=== PATIENT | male | born 1975 | race Caucasian/White ===

== ENCOUNTER 2016-06-16 13:20 | Emergency (ER) | payer OTHER ==
[2016-06-16] MEDS ORDERED: Ketorolac 30 MG/ML SDV IVPUSH ONE (14:35)
[2016-06-16] MEDS ORDERED: Sodium Chloride 0.9% 10 ML Syringe FLUSH PRN (14:35)
[2016-06-16] MEDS ORDERED: Sodium Chloride 0.9% 2.5 ML Syringe FLUSH PRN (14:35)
--- NOTE | 2016-06-16 14:46 | EDM.PDOC ---
ED HPI RENAL/ - General Chief Complaint: Flank Pain Stated Complaint: POSSIBLE KIDNEY STONE Time Seen by Provider: 06/16/16 14:03 Source of Information: Reports: Patient History Limitations: Reports: No limitations - History of Present Illness INITIAL COMMENTS - FREE TEXT/NARRATIVE: xHISTORY AND PHYSICAL: History of present illness: HISTORY AND PHYSICAL: History of present illness: [40-year-old male has a history of kidney stones now complaining of left flank pain. Patient previously had a large kidney stone the left that required lithotripsy. This morning he has sudden onset left flank pain typical for his renal colic. Denies dysuria prodrome. He said normal bowel and bladder habits recently. Pain is not worse with movement. He has no fevers chills sweats or shaking chills. Pain waxes and wanes and is not positional.] Review of systems: As per history of present illness and below otherwise all systems reviewed and negative. Past medical history: As per history of present illness and as reviewed below otherwise noncontributory. Surgical history: As per history of present illness and as reviewed below otherwise noncontributory. Social history: No reported history of drug or alcohol abuse. Family history: As per history of present illness and as reviewed below otherwise noncontributory. Physical exam: HEENT: Atraumatic, normocephalic, pupils reactive, negative for conjunctival pallor or scleral icterus, mucous membranes moist, throat clear, neck supple, nontender, trachea midline. Lungs: Clear to auscultation, breath sounds equal bilaterally, chest nontender. Heart: S1S2, regular, negative for clicks, rubs, or JVD. Abdomen: Soft, nondistended, nontender. Negative for masses or hepatosplenomegaly. Positive costovertebral tenderness left side. No CVAT on the right Pelvis: Stable nontender. Genitourinary: Deferred. Rectal: Deferred. Extremities: Atraumatic, negative for cords or calf pain. Neurovascular unremarkable. Neuro: Awake, alert, oriented. Cranial nerves II through XII unremarkable. Cerebellum unremarkable. Motor and sensory unremarkable throughout. Exam nonfocal. Diagnostics: [Noncontrast CT of urinary tract pending] Therapeutics: [] Impression: [Left flank pain,renal colic] Plan: [Signs and symptoms consistent with renal colic in a patient with a history of the same. He is well-appearing afebrile unremarkable vital signs. Abdomen and pelvis are benign. Pain is easily reproduced in the left costovertebral angle. No infectious prodrome or clinical presentation. Patient metabolic panel pending as well as UA to rule out less likely possibility of infection. Portal given IV with improvement of symptoms. Urinalysis with microscopic hematuria and no evidence of infection. Renal function normal. Glucose mildly elevated at 145. CT of the abdomen and pelvis with no kidney or ureteral stones visible. Microscopic hematuria patient's clinical history consistent with colic suspect passage the bladder small stone. Patient stable and afebrile. No further workup or treatment indicated. Patient aware to use ibuprofen and follow up with PCP for reevaluation of urinalysis to rule out persistent hematuria and indication for further workup as needed. He agrees with outpatient followup strict return precautions given. Definitive disposition and diagnosis as appropriate pending reevaluation and review of above. - Related Data Allergies/ADRs: Allergies Allergy/AdvReac Type Severity Reaction Status Date / Time No Known Allergies Allergy Verified 06/16/16 14:14 Home Meds: Home Meds Acetaminophen/Diphenhydramine [Tylenol Pm Ex-Strength Caplet] 1 tab PO QPM 06/16 [History] Past Medical History - Past Health History Medical/Surgical History: Denies Medical/Surgical History Genitourinary History: Reports: Renal calculus Social & Family History - Family History Family Medical History: Noncontributory - Tobacco Use Smoking Status *Q: Never Smoker Second Hand Smoke Exposure: No - Caffeine Use Caffeine Use: Reports: Soda Caffeine Use Comment: occationally - Recreational Drug Use Recreational Drug Use: No ED ROS GENERAL - Review of Systems Review Of Systems: See Below (See history of present illness) ED EXAM, RENAL/ - Physical Exam Exam: See Below (See history of present illness) Course - Vital Signs Last Recorded V/S: Last Vital Signs Temp 37.3 C 06/16/16 15:23 Pulse 94 06/16/16 15:23 Resp 18 06/16/16 15:23 BP 134/78 06/16/16 15:23 Pulse Ox 95 06/16/16 15:23 - Orders/Labs/Meds Orders: Active Orders 24 hr Category Date Time Status Sodium Chloride 0.9% [Saline Flush] Med 06/16/16 14:35 Active 10 ml FLUSH ASDIRECTED PRN Sodium Chloride 0.9% [Saline Flush] Med 06/16/16 14:35 Active 2.5 ml FLUSH ASDIRECTED PRN Saline Lock Insert [OM.PC] Stat Oth 06/16/16 14:35 Ordered Medication Orders Sodium Chloride (Saline Flush) 10 ml FLUSH ASDIRECTED PRN PRN Reason: Keep Vein Open Sodium Chloride (Saline Flush) 2.5 ml FLUSH ASDIRECTED PRN PRN Reason: Keep Vein Open Labs: Laboratory Tests 06/16/16 06/16/16 Range/Units 13:59 14:52 Sodium 141 (136-146) mmol/L Potassium 4.0 (3.5-5.1) mmol/L Chloride 106 (98-110) mmol/L Carbon Dioxide 25 (21-31) mmol/L BUN 20 (6.0-23.0) mg/dL Creatinine 1.0 (0.6-1.5) mg/dL Est Cr Clr Drug Dosing 111.88 mL/min Estimated GFR (MDRD) > 60.0 ml/min Glucose 145 H (60-110) mg/dL Calcium 9.2 (8.8-10.8) mg/dL Urine Color YELLOW Urine Appearance HAZY Urine pH 8.0 (5.0-8.0) Ur Specific [place] 1.015 (1.001-1.035) Urine Protein NEGATIVE (NEGATIVE) mg/dL Urine Glucose (UA) NEGATIVE (NEGATIVE) mg/dL Urine Ketones NEGATIVE (NEGATIVE) mg/dL Urine Occult Blood LARGE H (NEGATIVE) Urine Nitrite NEGATIVE (NEGATIVE) Urine Bilirubin NEGATIVE (NEGATIVE) Urine Urobilinogen 0.2 (<2.0) EU/dL Ur Leukocyte Esterase NEGATIVE (NEGATIVE) Urine RBC 18-20 (0-2/HPF) Urine WBC 1-2 (0-5/HPF) Ur Epithelial Cells RARE (NONE-FEW) Amorphous Sediment MODERATE (NEGATIVE) Urine Bacteria FEW (NEGATIVE) Meds: Medications Generic Name Dose Route Start Last Admin Trade Name Freq PRN Reason Stop Dose Admin Sodium Chloride 10 ml 06/16/16 14:35 Saline Flush FLUSH ASDIRECTED PRN Keep Vein Open Sodium Chloride 2.5 ml 06/16/16 14:35 Saline Flush FLUSH ASDIRECTED PRN Keep Vein Open Discontinued Medications Generic Name Dose Route Start Last Admin Trade Name Freq PRN Reason Stop Dose Admin Ketorolac Tromethamine 30 mg 06/16/16 14:35 06/16/16 15:19 Toradol IVPUSH 06/16/16 14:36 30 mg ONETIME ONE Administration Departure - Departure Time of Disposition: 15:42 Disposition: Home, Self-Care 01 Condition: good Clinical Impression: Flank pain, Microscopic hematuria, Renal colic on left side Instructions: Kidney Stones, [id number], Flank Pain, [id number] Referrals: PCP,None [Primary Care Provider] - Forms: ED Department Discharge Additional Instructions: Your symptoms today were suggestive of passage of a kidney stone.. Urinalysis does not show any signs of infection but did have some microscopic hematuria which often goes along with passing a stone your kidney function is normal your glucose was mildly elevated at 145. CAT scan did not show any stones in the kidneys or ureters however it is possible he may have passed a small stone in your bladder. Ibuprofen as needed for pain and follow up with your Dr. for reevaluation of your glucose to rule out evolving type 2 diabetes in for recheck of your microscopic hematuria to rule out the indication for further workup. Return immediately for new severe or worsening symptoms - My Orders Last 24 Hours: My Active Orders 06/16/16 14:35 Sodium Chloride 0.9% [Saline Flush] 10 ml FLUSH ASDIRECTED PRN Sodium Chloride 0.9% [Saline Flush] 2.5 ml FLUSH ASDIRECTED PRN Saline Lock Insert [OM.PC] Stat - Assessment/Plan Last 24 Hours: My Active Orders 06/16/16 14:35 Sodium Chloride 0.9% [Saline Flush] 10 ml FLUSH ASDIRECTED PRN Sodium Chloride 0.9% [Saline Flush] 2.5 ml FLUSH ASDIRECTED PRN Saline Lock Insert [OM.PC] Stat
[2016-06-16 15:29] LABS: CHLORIDE,CL 106 mmol/L (98-110); SODIUM,NA 141 mmol/L (136-146)
--- NOTE | 2016-06-16 15:35 | CT ---
CT of the abdomen and pelvis without contrast. HISTORY: Pain TECHNIQUE: Axial CT images were obtained of the abdomen and pelvis without contrast. Coronal and sag ittal reconstructions obtained. FINDINGS: The lung bases are clear, no pleural effusion. The liver, spleen, adrenal glands, and pancreas appear unremarkable for noncontrast examination. The gallbladder appears normal. There is no bulky retroperitoneal lymphadenopathy. No abdominal ascite s. There are no calcifications noted within the kidneys or along the courses of the ureters bilaterally . The large and small bowel are normal in caliber without evidence of obstruction. The appendix appear s normal. There is no bulky pelvic lymphadenopathy. No free fluid. No free air. The urinary bladder appears normal. There is hemisacralization of the left at L5. IMPRESSION: No acute findings within the abdomen or pelvis.
[2016-06-16] MEDS ORDERED: Acetaminophen/HYDROcodone 325-10 MG Tab PO ONE (16:17)
[2016-06-16 16:35] VITALS: BP 142/84
== END 2016-06-16 17:01 | disposition home or self-care (01) ==
LOC: MW.ED 13:20
DX: R10.9 Unspecified abdominal pain (principal); R31.29 Other microscopic hematuria; N23 Unspecified renal colic; Z87.442 Personal history of urinary calculi
CPT/HCPCS: 36415; 74176; 80048; 81001; 96374; 96375; 99284; A9270; J1885; J2360

== ENCOUNTER 2016-07-17 16:33 | Emergency (ER) | payer OTHER ==
--- NOTE | 2016-07-17 16:59 | EDM.PDOC ---
ED HPI GI/ABDOMINAL - General Chief Complaint: Gastrointestinal Problem Stated Complaint: RECTAL BLEEDING Time Seen by Provider: 07/17/16 16:34 Source of Information: Reports: Patient History Limitations: Reports: No limitations - History of Present Illness INITIAL COMMENTS - FREE TEXT/NARRATIVE: History of present illness: [] Patient had a few days of rectal pain with increased bleeding today. He's had to change his pants several times today due to blood dripping down. Patient has rectal pain. Patient states that he felt a little dizzy on the drive to work today but currently feels fine and the bleeding has slowed down Review of systems: As per history of present illness and below otherwise all systems reviewed and negative. Past medical history: As per history of present illness and as reviewed below otherwise noncontributory. Surgical history: As per history of present illness and as reviewed below otherwise noncontributory. Social history: No reported history of drug or alcohol abuse. Family history: As per history of present illness and as reviewed below otherwise noncontributory. Physical exam: General: Well developed, well nourished in NAD HEENT: Atraumatic, normocephalic, pupils reactive, negative for conjunctival pallor or scleral icterus, mucous membranes moist, throat clear, neck supple, nontender, trachea midline. Lungs: Clear to auscultation, breath sounds equal bilaterally, chest nontender. Heart: S1S2, regular, negative for clicks, rubs, or JVD. Abdomen: Soft, nondistended, nontender. Negative for masses or hepatosplenomegaly. Negative for costovertebral tenderness. Pelvis: Stable nontender. Genitourinary: Deferred. Rectal: No external sign of hemorrhoid no active bleeding per rectum on rectal exam do not appreciate a thrombosed hemorrhoid on palpation and there is no gross blood present Extremities: Atraumatic, negative for cords or calf pain. Neurovascular unremarkable. Neuro: Awake, alert, oriented. Cranial nerves II through XII unremarkable. Cerebellum unremarkable. Motor and sensory unremarkable throughout. Exam nonfocal. Diagnostics: [] CBC normal Therapeutics: [] Impression: [] To bleeding likely secondary to hemorrhoid Plan: [] Anusol as needed for pain, sitz baths, stool softeners followup with PMD Definitive disposition and diagnosis as appropriate pending reevaluation and review of above. - Related Data Allergies/ADRs: Allergies Allergy/AdvReac Type Severity Reaction Status Date / Time No Known Allergies Allergy Verified 07/17/16 17:08 Home Meds: Home Meds Hydrocortisone [Anusol-Hc] 30 gm TP TID PRN #30 cream..g. 07/17/16 [Rx] Past Medical History - Past Health History Medical/Surgical History: Denies Medical/Surgical History Genitourinary History: Reports: Renal calculus Social & Family History - Family History Family Medical History: Noncontributory - Tobacco Use Smoking Status *Q: Never Smoker Second Hand Smoke Exposure: No - Caffeine Use Caffeine Use: Reports: Soda Caffeine Use Comment: occationally - Recreational Drug Use Recreational Drug Use: No ED ROS GENERAL - Review of Systems Review Of Systems: See Below (See history of present illness) ED EXAM, GI/ABD - Physical Exam Exam: See Below (See history of present illness) Course - Vital Signs Last Recorded V/S: Last Vital Signs Temp 36.2 C 07/17/16 17:08 Pulse 94 07/17/16 17:08 Resp 18 07/17/16 17:08 BP 111/76 07/17/16 17:08 Pulse Ox 96 07/17/16 17:08 - Orders/Labs/Meds Labs: Laboratory Tests 07/17/16 Range/Units 17:45 WBC 7.16 (4.0-11.0) K/uL RBC 4.51 (4.50-5.90) M/uL Hgb 14.7 (13.0-17.0) g/dL Hct 42.0 (38.0-50.0) % MCV 93.1 (80.0-98.0) fL MCH 32.6 H (27.0-32.0) pg MCHC 35.0 (31.0-37.0) g/dL RDW Std Deviation 42.1 (28.0-62.0) fl RDW Coeff of Sandrita 12 (11.0-15.0) % Plt Count 234 (150-400) K/uL MPV 10.10 (7.40-12.00) fL Neut % (Auto) 53.8 (48.0-80.0) % Lymph % (Auto) 35.5 (16.0-40.0) % [place] % (Auto) 6.7 (0.0-15.0) % Eos % (Auto) 3.4 (0.0-7.0) % Baso % (Auto) 0.6 (0.0-1.5) % Neut # (Auto) 3.9 (1.4-5.7) K/uL Lymph # (Auto) 2.5 H (0.6-2.4) K/uL [place] # (Auto) 0.5 (0.0-0.8) K/uL Eos # (Auto) 0.2 (0.0-0.7) K/uL Baso # (Auto) 0.0 (0.0-0.1) K/uL Nucleated RBC % 0.0 /100WBC Nucleated RBCs # 0 K/uL Departure - Departure Time of Disposition: 18:10 Disposition: Home, Self-Care 01 Condition: good Clinical Impression: Hemorrhoids Qualifiers: Hemorrhoid type: unspecified Qualified Code(s): K64.9 - Unspecified hemorrhoids Prescriptions: Hydrocortisone [Anusol-Hc] 30 gm TP TID PRN #30 cream..g. PRN Reason: Pain Forms: ED Department Discharge Additional Instructions: The following information is given to patients seen in the emergency department who are being discharged to home. This information is to outline your options for follow-up care. We provide all patients seen in our emergency department with a follow-up referral. The need for follow-up, as well as the timing and circumstances, are variable depending upon the specifics of your emergency department visit. If you don't have a primary care physician on staff, we will provide you with a referral. We always advise you to contact your personal physician following an emergency department visit to inform them of the circumstance of the visit and for follow-up with them and/or the need for any referrals to a consulting specialist. The emergency department will also refer you to a specialist when appropriate. This referral assures that you have the opportunity for follow-up care with a specialist. All of these measure are taken in an effort to provide you with optimal care, which includes your follow-up. Under all circumstances we always encourage you to contact your private physician who remains a resource for coordinating your care. When calling for follow-up care, please make the office aware that this follow-up is from your recent emergency room visit. If for any reason you are refused follow-up, please contact the [facility] at and asked to speak to the emergency department charge nurse. Anusol as needed for pain, stool softeners, sitz baths and followup with your PMD [facility] [address] [place] [id number]
[2016-07-17 18:37] VITALS: BP 115/72
== END 2016-07-17 18:37 | disposition home or self-care (01) ==
LOC: MW.ED 16:33
DX: K64.9 Unspecified hemorrhoids (principal)
CPT/HCPCS: 36415; 85025; 99283

== ENCOUNTER → 2016-08-09 | Outpatient (CLI) | payer OTHER | END | disposition home or self-care (01) | LOC: MW.CHUR 11:40 | PROVIDERS: ATTEND Urology | DX: R31.29 Other microscopic hematuria (principal); R10.9 Unspecified abdominal pain | CPT/HCPCS: 81001 ==

== ENCOUNTER 2019-06-17 09:17 | Emergency (ER) | payer BC, OTHER ==
[2019-06-17] MEDS ORDERED: HYDROmorphone 2 MG/ML Syringe IVPUSH ONE ×2 (09:52→11:00)
[2019-06-17] MEDS ORDERED: Ketorolac 30 MG/ML SDV IVPUSH ONE (09:52)
[2019-06-17] MEDS ORDERED: Ondansetron 4 MG/2 ML SDV IVPUSH ONE (09:52)
[2019-06-17] MEDS ORDERED: Sodium Chloride 0.9% 1,000 ML IV ONE (09:57)
--- NOTE | 2019-06-17 09:57 | EDM.PDOC ---
ED HPI GENERAL MEDICAL PROBLEM - General Chief Complaint: Flank Pain Stated Complaint: POSSIBLE KIDNEY STONE Time Seen by Provider: 06/17/19 09:49 Source of Information: Reports: Patient History Limitations: Reports: No Limitations - History of Present Illness INITIAL COMMENTS - FREE TEXT/NARRATIVE: HISTORY OF PRESENT ILLNESS: Patient is a 43-year-old male with history of kidney stones who presents with pain since 7 AM this morning to his left CVA and flank region which he rates as 9 out of 10 in severity. States he feels as though he cannot get comfortable. States pain feels similar to prior kidney stones. Denies any fevers or chills. Reports nausea but denies any emesis. No other abdominal pain. No diarrhea or constipation. Has not tried to urinate yet but denies any prior dysuria. No rash. No chest pain or dyspnea. REVIEW OF SYSTEMS: Other than the symptoms associated with the present events, the following is reported with regard to recent health: General: (-) fever. HENT: (-) congestion. Respiratory: (-) cough. Cardiovascular: (-) chest pain. GI: left flank pain : (-) dysuria Musculoskeletal: (-) other aches or pains. Endocrine: (-) generalized weakness. Neurological: (-) localized weakness. Skin: (-) rash PAST MEDICAL HISTORY: reviewed as per nursing notes SOCIAL HISTORY: reviewed as per nursing notes, MEDICATIONS: Per nurse's note ALLERGIES: Per nurse's note, reviewed by me PHYSICAL EXAMINATION: GENERALIZED APPEARANCE: well developed, well nourished in moderate distress VITAL SIGNS: Per nurse's note, reviewed by me SKIN: Warm, dry; (-) cyanosis; (-) rash. HEAD: (-) scalp swelling, (-) tenderness. EYES: (-) conjunctival pallor, (-) scleral icterus. ENMT: (-) stridor; mucous membranes moist. NECK: (-) tenderness, (-) stiffness, CHEST AND RESPIRATORY: (-) rales, (-) rhonchi, (-) wheezes; breath sounds equal bilaterally. HEART AND CARDIOVASCULAR: (-) irregularity; (-) murmur, (-) gallop. ABDOMEN AND GI: Soft; (-) tenderness, (-) guarding, (-) rebound, (-) palpable masses, left CVAT, left flank tenderness. EXTREMITIES: (-) deformity, (-) edema. NEURO AND PSYCH: Alert. Cranial nerves grossly intact; strength symmetric. gait steady DIAGNOSTICS: CT abd/pelvis: as per radiologist report, reviewed by myself Labs ordered and reviewed EMERGENCY DEPARTMENT COURSE AND TREATMENT: Patient's condition remained stable during Emergency Department evaluation. Given IVF, Toradol, Dilaudid, Zofran. Significant hematuria noted. No stone seen on CT. Patient is able to urinate here. He does have CVA tenderness. I cannot entirely exclude UTI/early pyelonephritis and therefore will start on antibiotics as below. Must follow- up with urologist in 1 to 2 days. Return immediately with any new or worsening symptoms. No fever emesis or peritoneal signs on examination. Patient is clinically well-appearing nontoxic and pain well controlled after medication. PLAN AND FOLLOW-UP: Patient received written and verbal instructions regarding this condition. Return to ED immediately with any new or worsening symptoms. Follow up to be arranged by patient with pcp and urologist in 1-2 days for further evaluation. Given discharge precautions. Patient expressed verbal understanding. Left Flank Pain Score (Numeric/FACES): 9 - Related Data Allergies Allergy/AdvReac Type Severity Reaction Status Date / Time No Known Allergies Allergy Verified 06/17/19 09:37 Home Meds: Home Meds Sulindac 150 mg PO BID #20 tablet 03/02/19 [Rx] Acetaminophen/oxyCODONE [Percocet 325-5 MG] 1 each PO Q6HR #10 tab 06/17/19 [Rx] Ciprofloxacin HCl [Cipro] 500 mg PO BID 7 Days #14 tablet 06/17/19 [Rx] Past Medical History - Past Health History Medical/Surgical History: Denies Medical/Surgical History HEENT History: Reports: Hard of Hearing Genitourinary History: Reports: Renal Calculus Musculoskeletal History: Reports: Fracture Neurological History: Reports: Other (See Below) Other Neuro History: childhood menengitis Endocrine/Metabolic History: Reports: Obesity/BMI 30+ - Infectious Disease History Infectious Disease History: Reports: Chicken Pox, Measles, Mumps - Past Surgical History HEENT Surgical History: Reports: Tonsillectomy, Other (See Below) Other HEENT Surgeries/Procedures: mastoid removal GI Surgical History: Reports: ERCP Musculoskeletal Surgical History: Reports: Other (See Below) Other Musculoskeletal Surgeries/Procedures:: knee surgery Social & Family History - Family History Family Medical History: Noncontributory - Tobacco Use Smoking Status *Q: Never Smoker Second Hand Smoke Exposure: No - Caffeine Use Caffeine Use: Reports: Coffee, Energy Drinks, Soda Caffeine Use Comment: occationally - Recreational Drug Use Recreational Drug Use: No - Living Situation & Occupation Living situation: Reports: , with Spouse, with Family (2 kids) Occupation: Employed ([employer] ED ROS GENERAL - Review of Systems Review Of Systems: See Below (see dictation) ED EXAM, GENERAL - Physical Exam Exam: See Below (see dictation) Course - Vital Signs Last Recorded V/S: Last Vital Signs Temp 97.9 F 06/17/19 09:34 Pulse 78 06/17/19 11:47 Resp 16 06/17/19 11:47 BP 144/84 H 06/17/19 11:47 Pulse Ox 97 06/17/19 11:47 - Orders/Labs/Meds Labs: Laboratory Tests 06/17/19 06/17/19 06/17/19 Range/Units 09:50 09:50 10:35 WBC 6.78 (4.0-11.0) K/uL RBC 4.51 (4.50-5.90) M/uL Hgb 14.1 (13.0-17.0) g/dL Hct 41.4 (38.0-50.0) % MCV 91.8 (80.0-98.0) fL MCH 31.3 (27.0-32.0) pg MCHC 34.1 (31.0-37.0) g/dL RDW Std Deviation 41.4 (28.0-62.0) fl RDW Coeff of Sandrita 12 (11.0-15.0) % Plt Count 286 (150-400) K/uL MPV 10.10 (7.40-12.00) fL Neut % (Auto) 56.5 (48.0-80.0) % Lymph % (Auto) 31.4 (16.0-40.0) % [place] % (Auto) 8.1 (0.0-15.0) % Eos % (Auto) 3.4 (0.0-7.0) % Baso % (Auto) 0.6 (0.0-1.5) % Neut # (Auto) 3.8 (1.4-5.7) K/uL Lymph # (Auto) 2.1 (0.6-2.4) K/uL [place] # (Auto) 0.6 (0.0-0.8) K/uL Eos # (Auto) 0.2 (0.0-0.7) K/uL Baso # (Auto) 0.0 (0.0-0.1) K/uL Nucleated RBC % 0.0 /100WBC Nucleated RBCs # 0 K/uL Sodium 143 (136-148) mmol/L Potassium 3.4 L (3.5-5.1) mmol/L Chloride 105 (98-107) mmol/L Carbon Dioxide 26.8 (21.0-32.0) mmol/L BUN 11 (7.0-18.0) mg/dL Creatinine 0.8 (0.8-1.3) mg/dL Est Cr Clr Drug Dosing 135.57 mL/min Estimated GFR (MDRD) > 60.0 ml/min Glucose 95 (74-106) mg/dL Calcium 8.5 (8.5-10.1) mg/dL Urine Color RED Urine Appearance CLOUDY Urine pH 6.5 (5.0-8.0) Ur Specific [place] 1.010 (1.001-1.035) Urine Protein NEGATIVE (NEGATIVE) mg/dL Urine Glucose (UA) NEGATIVE (NEGATIVE) mg/dL Urine Ketones NEGATIVE (NEGATIVE) mg/dL Urine Occult Blood LARGE H (NEGATIVE) Urine Nitrite NEGATIVE (NEGATIVE) Urine Bilirubin NEGATIVE (NEGATIVE) Urine Urobilinogen 0.2 (<2.0) EU/dL Ur Leukocyte Esterase NEGATIVE (NEGATIVE) Urine RBC 70-80 (0-2/HPF) Urine WBC NONE SEEN (0-5/HPF) Ur Epithelial Cells RARE (NONE-FEW) Urine Bacteria NOT SEEN (NEGATIVE) Meds: Medications Discontinued Medications Generic Name Dose Route Start Last Admin Trade Name Freq PRN Reason Stop Dose Admin Hydromorphone HCl 1 mg 06/17/19 09:52 06/17/19 10:17 Dilaudid IVPUSH 06/17/19 09:53 1 mg ONETIME ONE Administration Hydromorphone HCl 1 mg 06/17/19 11:00 06/17/19 11:04 Dilaudid IVPUSH 06/17/19 11:01 1 mg ONETIME ONE Administration Sodium Chloride 1,000 mls @ 1,000 mls/hr 06/17/19 09:57 06/17/19 10:16 Normal Saline IV 06/17/19 10:56 1,000 mls/hr .Bolus ONE Administration Ketorolac Tromethamine 30 mg 06/17/19 09:52 06/17/19 10:16 Toradol IVPUSH 06/17/19 09:53 30 mg ONETIME ONE Administration Ondansetron HCl 4 mg 06/17/19 09:52 06/17/19 10:16 Zofran IVPUSH 06/17/19 09:53 4 mg ONETIME ONE Administration Departure - Departure Time of Disposition: 11:07 Disposition: Home, Self-Care 01 Condition: Good Clinical Impression: Hematuria - Discharge Information *PRESCRIPTION DRUG MONITORING PROGRAM REVIEWED*: Not Applicable *COPY OF PRESCRIPTION DRUG MONITORING REPORT IN PATIENT LUCINA: Not Applicable Prescriptions: Acetaminophen/oxyCODONE [Percocet 325-5 MG] 1 each PO Q6HR #10 tab Ciprofloxacin HCl [Cipro] 500 mg PO BID 7 Days #14 tablet Instructions: Hematuria, Adult Referrals: PCP,[place] [Primary Care Provider] - Nayeli Razo DO [Ordering Only Provider] - 1 Day Forms: ED Department Discharge Additional Instructions: The following information is given to patients seen in the emergency department who are being discharged to home. This information is to outline your options for follow-up care. We provide all patients seen in our emergency department with a follow-up referral. The need for follow-up, as well as the timing and circumstances, are variable depending upon the specifics of your emergency department visit. If you don't have a primary care physician on staff, we will provide you with a referral. We always advise you to contact your personal physician following an emergency department visit to inform them of the circumstance of the visit and for follow-up with them and/or the need for any referrals to a consulting specialist. The emergency department will also refer you to a specialist when appropriate. This referral assures that you have the opportunity for follow-up care with a specialist. All of these measure are taken in an effort to provide you with optimal care, which includes your follow-up. Under all circumstances we always encourage you to contact your private physician who remains a resource for coordinating your care. When calling for follow-up care, please make the office aware that this follow-up is from your recent emergency room visit. If for any reason you are refused follow-up, please contact the [facility] Emergency Department at and asked to speak to the emergency department charge nurse. Sepsis Event Note - Evaluation Sepsis Screening Result: No Definite Risk - Focused Exam Vital Signs: Vital Signs Temp Pulse Resp BP Pulse Ox 06/17/19 11:47 78 16 144/84 H 97 06/17/19 09:34 97.9 F 94 20 154/99 H 96 Date Exam was Performed: 06/17/19 Time Exam was Performed: 12:51
[2019-06-17 10:28] LABS: BLOOD UREA NITROGEN,BUN 11 mg/dL (7.0-18.0); CARBON DIOXIDE,CO2 26.8 mmol/L (21.0-32.0); CHLORIDE,CL 105 mmol/L (98-107); GLUCOSE RANDOM 95 mg/dL (74-106); POTASSIUM,K 3.4 mmol/L (3.5-5.1); SODIUM,NA 143 mmol/L (136-148)
--- NOTE | 2019-06-17 10:40 | CT ---
CT abdomen and pelvis Technique: Multiple axial sections were obtained from above the dome of the diaphragm inferiorly through the pubic symphysis. Intravenous and oral contrast not utilized. Comparison: Previous CT abdomen and pelvis exam of 07/23/16. Findings: Kidneys show no abnormal calcifications. No hydronephrosis is seen of either kidney. Visualized lung bases show nothing acute. Liver shows fatty infiltration. No focal abnormality is appreciated within the liver. Spleen appears within normal limits in size. Adrenal glands show no nodule. Gallbladder contains no calcified gallstones. Pancreas is within normal limits. Aorta shows no aneurysm. No retroperitoneal adenopathy or mesenteric abnormalities are seen. No pelvic mass or adenopathy is seen. Appendix is seen which is normal. No free fluid or inflammatory change is appreciated. Bone window settings were reviewed which shows mild scattered degenerative change. Impression: 1. Fatty infiltration within the liver. 2. Other findings as noted above. 3. Nothing acute is appreciated on this noncontrast CT study of the abdomen and pelvis. Diagnostic code #2 This report was dictated in MDT
[2019-06-17 11:47] VITALS: BP 144/84; PULSE 78
== END 2019-06-17 11:48 | disposition home or self-care (01) ==
LOC: MW.ED 09:17
DX: R31.9 Hematuria, unspecified (principal); E66.9 Obesity, unspecified; Z87.442 Personal history of urinary calculi
CPT/HCPCS: 36415; 74176; 80048; 81001; 85025; 96361; 96374; 96375; 96376; 99284; J1170; J1885; J2405; J7030; 99283